=== PATIENT | female | born 1955 | race Caucasian/White ===

== ENCOUNTER 2022-11-02 06:23 | Observation (INO) ==
[~2022-11-02 06:23] MED LIST: Buffered Lidocaine 1% SYRIN 1 ml INTRADERM ONE; Lactated Ringers 1000 ml BAG 1,000 ML IV SCH; Naloxone 0.4 mg VIAL 0.4 mg/ml 1 ml VIAL IV PRN; Ondansetron 4 mg VIAL 2 MG/ML 2 ml VIAL IV PRN; fentaNYL 100 mcg/2 ml 50 MCG/ML VIAL IV PRN
[2022-11-02] MEDS ORDERED: ceFAZolin 2 GM PREMIX 2 GM/50 ML BAG ONE (06:56)
[2022-11-02] MEDS ORDERED: Lidocaine 2% PF 5 ML VIAL ONE ×2 (07:38→09:55)
[2022-11-02] MEDS ORDERED: Midazolam 2 mg/2 ml VIAL 1 mg/ml 2 ml VIAL (2 mg) ONE ×2 (07:38→09:41)
[2022-11-02] MEDS ORDERED: Bupivacaine 0.5% SDV PF 30ML VIAL ONE (07:38)
[2022-11-02] MEDS ORDERED: Dexamethasone IV 4 MG/ML VIAL 1 ml VIAL ONE ×3 (07:38→10:16)
[2022-11-02] MEDS ORDERED: Acetaminophen IV 1 GM/100ML 0 MG/0 ML BAG IV ONE (07:42)
[2022-11-02] MEDS ORDERED: Ondansetron 4 mg VIAL 2 MG/ML 2 ml VIAL ONE ×2 (07:42→10:16)
[2022-11-02] MEDS ORDERED: Ropivacaine 5 MG/ML 20 ML VIAL 0.5% (100 MG) ONE (09:48)
[2022-11-02] MEDS ORDERED: Phenylephrine IV 10 MG/ML 1 ml VIAL ONE (09:59)
[2022-11-02] MEDS ORDERED: Magnesium Hydroxide LIQ 30 ML UDC PO PRN (12:16)
[2022-11-02] MEDS ORDERED: Lactulose 30 ml UDC PO PRN (12:16)
[2022-11-02] MEDS ORDERED: Morphine 2 MG/ML SYRINGE IV PRN (12:16)
[2022-11-02] MEDS: Lactated Ringers 1000 ml BAG 1,000 ML IV SCH ×2 (13:41→19:00)
[2022-11-02] MEDS: Ondansetron 4 mg VIAL 2 MG/ML 2 ml VIAL IV PRN ×2 (14:59→21:32)
[2022-11-02] MEDS ORDERED: Lactated Ringers 1000 ml BAG 500 ML IV ONE (15:00)
[2022-11-02] MEDS: ceFAZolin 1 GM ADVAN 1 GM in NS 0.9% 50 ML 50 ML IVPB SCH (17:43)
[2022-11-02] MEDS: Simvastatin 20 mg TAB (NF) PO SCH ×2 (21:30→22:32)
[2022-11-02] MEDS: Magnesium Hydroxide LIQ 30 ML UDC PO SCH (22:30)
[2022-11-03] MEDS: ceFAZolin 1 GM ADVAN 1 GM in NS 0.9% 50 ML 50 ML IVPB SCH ×2 (02:13→10:34)
[2022-11-03] MEDS: Ondansetron 4 mg VIAL 2 MG/ML 2 ml VIAL IV PRN (06:03)
[2022-11-03] MEDS: Lactated Ringers 1000 ml BAG 1,000 ML IV SCH (06:05)
[2022-11-03 07:09] LABS: Hematocrit 34 % (35-47); Hemoglobin 11.4 g/dL (12.0-16.0); Mean Platelet Volume 8.2 fL (7.4-10.4); Platelet Count 220 10^3/uL (150-450)
[2022-11-03 07:39] LABS: Calcium 8.6 mg/dL (8.6-10.3); Creatinine, Serum 0.69 mg/dL (0.51-0.95); Potassium 3.5 mmol/L (3.5-5.0); eGFR CKD-EPI 95.1 (>60)
[2022-11-03] MEDS: Magnesium Hydroxide LIQ 30 ML UDC PO SCH (08:44)
[2022-11-03] MEDS ORDERED: Vitamin THERAPEUTIC TAB PO SCH (09:00)
[2022-11-03 14:10] VITALS: BP 137/79
== END 2022-11-03 13:20 | disposition home or self-care (01) ==
LOC: SSU 06:23 → OR 06:23
PROVIDERS: ADMIT Orthopaedic Surgery Adult Reconstructive Orthopaedic Surgery; ATTEND Orthopaedic Surgery Adult Reconstructive Orthopaedic Surgery